=== PATIENT | female | born 1950 | race Hispanic/Latino ===

== ENCOUNTER → 2019-07-20 | Outpatient (CLI) | payer OTHER | END | disposition home or self-care (01) | LOC: SHCH 08:53 | PROVIDERS: ATTEND Internal Medicine Cardiovascular Disease | DX: R00.2 Palpitations (principal) | CPT/HCPCS: 93306 ==

== ENCOUNTER → 2021-03-04 | Outpatient (CLI) | payer OTHER | END | disposition home or self-care (01) | LOC: RAH 08:00 | PROVIDERS: ATTEND Internal Medicine Gastroenterology | DX: R94.5 Abnormal results of liver function studies (principal); K80.20 Calculus of gallbladder without cholecystitis without obstruction; I70.0 Atherosclerosis of aorta; K76.0 Fatty (change of) liver, not elsewhere classified | CPT/HCPCS: 76700 ==

== ENCOUNTER 2022-04-14 07:28 | Observation (INO) | payer OTHER ==
[2022-04-10 10:31] LABS: BASOPHILS % (AUTO) 0.5 % (0.0-5.0); HEMATOCRIT 37.2 % (36-48); LYMPHOCYTES % (AUTO) 41.5 % (21.0-51.0); MEAN CORPUSCULAR HEMOGLOBIN 27.4 pg (27.0-33.0); MEAN CORPUSCULAR VOLUME 85.7 fL (79-99); MONOCYTES % (AUTO) 7.7 % (3.0-13.0); NEUTROPHILS % (AUTO) 48.1 % (40.0-77.0); PLATELET COUNT (AUTO) 218 K/uL (130-400); RED BLOOD CELL COUNT(AUTO) 4.34 MIL/uL (4.00-5.50); RED CELL DISTRIBUTION WIDTH 14.2 % (11.0-15.5); WHITE BLOOD COUNT (AUTO) 5.6 K/uL (4.8-10.8)
[2022-04-10 10:42] LABS: CREATININE 0.7 mg/dL (0.5-1.5); POTASSIUM 4.1 mmol/L (3.5-5.1)
[2022-04-10 10:45] LABS: INR 0.94 (0.85-1.15); PROTHROMBIN TIME 10.3 SEC (9.6-11.6)
[2022-04-10 10:46] LABS: PARTIAL THROMBOPLASTIN TIME 24.7 SEC (26.3-35.5)
[2022-04-10 10:52] LABS: B-TYPE NATRIURETIC PEPTIDE 29 pg/mL (0-100)
[2022-04-10 10:57] LABS: APPEARANCE,URINE CLEAR (CLEAR); BILIRUBIN,URINE NEGATIVE (NEGATIVE); COLOR,URINE YELLOW (YELLOW); GLUCOSE, URINE (UA) NEGATIVE (NEGATIVE); KETONES,URINE NEGATIVE (NEGATIVE); LEUKOCYTE ESTERASE ,URINE SMALL (NEGATIVE); NITRATE,URINE NEGATIVE (NEGATIVE); OCCULT BLOOD,URINE SMALL (NEGATIVE); PROTEIN,URINE NEGATIVE (NEGATIVE); UROBILINOGEN,URINE 0.2 mg/dL (0.2-1.0)
[2022-04-10 11:33] LABS: BACTERIA,URINE Rare /HPF (None Seen); SQUAMOUS EPITHELIAL CELL,UR Few /HPF (0-2); WBC,URINE 0-1 /HPF (0-1)
[2022-04-10 13:22] VITALS: BP 137/73
[~2022-04-14] VITALS: Ht 160 cm; Wt 77.0 kg
[2022-04-14] VITALS (10 sets, daily range): BP systolic 108–157; BP diastolic 58–78
[~2022-04-14 07:28] MED LIST: ASPI-1443 PO; CLOP75TA32 PO; LEVO150T11 PO; METO-409 PO; OXYB-66 PO; SIMV-43 PO
[2022-04-14] MEDS ORDERED: 0.9%NACL 1000ML 1,000 ML IV ONE (08:43)
[2022-04-14] MEDS ORDERED: IOHEXOL 350 MG/ML 100ML INFUS..BTL IV ONE ×2 (10:37→11:56)
[2022-04-14] MEDS ORDERED: MIDAZOLAM HCL 1 MG/ML 2ML VIAL ONE (10:37)
[2022-04-14] MEDS ORDERED: NITROGLYCERIN 50MG VIAL ONE (10:37)
[2022-04-14] MEDS ORDERED: LIDOCAINE HCL 400MG/20ML VIAL ONE (10:38)
[2022-04-14] MEDS ORDERED: FENTANYL CITRATE PF 50 MCG/1 ML 2ML VIAL ONE ×2 (10:38→13:38)
[2022-04-14] MEDS ORDERED: HEPARIN 10,000 UNIT/10ML (1,000 UNIT/ML) VIAL ONE (11:09)
[2022-04-14] MEDS ORDERED: BIVALIRUDIN 250 MG/VIAL IV ONE ×2 (11:09→12:39)
[2022-04-14] MEDS ORDERED: CLOPIDOGREL 300MG TAB ONE (11:40)
[2022-04-14] MEDS ORDERED: ASPIRIN 325MG EC TAB PO ONE (11:44)
[2022-04-14] MEDS ORDERED: LABETALOL 20MG SYG IV ONE (12:24)
[2022-04-14] MEDS ORDERED: IOHEXOL-350 75 ML VIAL IV ONE (13:07)
[2022-04-14] MEDS ORDERED: EPTIFIBATIDE 2 MG/ML 10 ML VIAL IVP ONE (13:13)
[2022-04-14] MEDS ORDERED: 0.9%NACL 1000ML 1,000 ML IV SCH (14:00)
[2022-04-14] MEDS ORDERED: ONDANSETRON 4MG INJ ONE (14:29)
[2022-04-14] MEDS ORDERED: ONDANSETRON 4MG INJ IVP ONE ×2 (14:30)
[2022-04-14] MEDS ORDERED: SIMVASTATIN 20 MG TABLET PO SCH (21:00)
[2022-04-14] MEDS ORDERED: CLOPIDOGREL 75MG TAB PO SCH (21:00)
[2022-04-14] MEDS ORDERED: OXYBUTYNIN 5 MG TAB.SR.24H PO SCH (21:00)
[2022-04-15 00:31] VITALS: BP 114/72
[2022-04-15 00:34] VITALS: BP 114/72
[2022-04-15 03:47] VITALS: BP 126/63
[2022-04-15 04:27] LABS: HEMATOCRIT 30.1 % (36-48); MEAN CORPUSCULAR HEMOGLOBIN 28.1 pg (27.0-33.0); MEAN CORPUSCULAR HGB CONC 33.6 g/dL (32.0-36.0); MEAN CORPUSCULAR VOLUME 83.6 fL (79-99); RED BLOOD CELL COUNT(AUTO) 3.6 MIL/uL (4.00-5.50); RED CELL DISTRIBUTION WIDTH 14.2 % (11.0-15.5); WHITE BLOOD COUNT (AUTO) 7.4 K/uL (4.8-10.8)
[2022-04-15 04:41] LABS: CREATININE 0.6 mg/dL (0.5-1.5); POTASSIUM 3.4 mmol/L (3.5-5.1)
[2022-04-15 08:00] VITALS: BP 138/70
[2022-04-15] MEDS ORDERED: ASPIRIN 81 MG EC TAB PO SCH (09:00)
[2022-04-15] MEDS ORDERED: METOPROLOL SUCCINATE 50 MG TAB.SR.24H PO SCH (09:00)
[2022-04-15] MEDS ORDERED: LEVOTHYROXINE 150 MCG TABLET PO SCH (09:00)
[2022-04-15 12:00] VITALS: BP 126/61
[2022-04-15] MEDS ORDERED: KCL 20 MEQ ERTAB PO STA (13:18)
== END 2022-04-15 15:10 | disposition home or self-care (01) ==
LOC: DAH 07:28 → 2DH 07:29
PROVIDERS: ADMIT Internal Medicine Cardiovascular Disease; ATTEND Internal Medicine Cardiovascular Disease
DX: I25.119 Atherosclerotic heart disease of native coronary artery with unspecified angina pectoris (principal); I10 Essential (primary) hypertension; E03.9 Hypothyroidism, unspecified; E78.5 Hyperlipidemia, unspecified; R94.39 Abnormal result of other cardiovascular function study; I25.10 Atherosclerotic heart disease of native coronary artery without angina pectoris; Z79.899 Other long term (current) drug therapy; Z98.890 Other specified postprocedural states
CPT/HCPCS: 80048 ×2; 83880; 85025; 85610; 85730; 81001; 36415 ×2; 71045; 93005 ×2; 92978; 93799; 82948; 80061; 85027; C1769 ×3; C1887 ×2; C1894 ×3; C1760; C1874 ×2; C1761; C1753; C1725 ×2; Q9965; G0378 ×25; J3010 ×2; J3490 ×2; J7030; J1644 ×3; J2250; J2405; J1327; J0583 ×2; Q9967 ×3; A4215; A4223 ×3; A4222; A4221; A4663; A4216; A4606; C9600; C9601; 99156; 99157

== ENCOUNTER → 2022-06-16 | Outpatient (CLI) | payer OTHER | END | disposition home or self-care (01) | LOC: RAH 09:17 | PROVIDERS: ATTEND Internal Medicine | DX: M75.122 Complete rotator cuff tear or rupture of left shoulder, not specified as traumatic (principal); M25.512 Pain in left shoulder | CPT/HCPCS: 73221 ==

== ENCOUNTER → 2023-12-02 | Outpatient (CLI) | payer OTHER ==
[~2023-12-02] MED LIST changes: +IOHEXOL 350 MG/ML 100ML INFUS..BTL IV ONE
== END | disposition home or self-care (01) ==
LOC: RAH 08:31
PROVIDERS: ATTEND Internal Medicine Cardiovascular Disease
DX: I70.0 Atherosclerosis of aorta (principal)
CPT/HCPCS: 71275; Q9967